=== PATIENT | male | born 1970 | race Caucasian/White ===

== ENCOUNTER → 2020-08-03 12:07 | Outpatient (CLI) | payer OTHER, SELFPAY ==
[2020-08-03] MEDS: COVID-19 VACC #1, MRNA(MOD) 100 MCG/0.5 ML VIAL IM (12:16)
== END ==
PROVIDERS: Visit Provider Internal Medicine
DX: Z23 Encounter for immunization (principal)
CPT/HCPCS: 0011A; 91301

== ENCOUNTER → 2020-08-31 10:23 | Outpatient (CLI) | payer OTHER, SELFPAY ==
[2020-08-31] MEDS: COVID-19 VACC #2, MRNA(MOD) 100 MCG/0.5 ML VIAL IM (10:33)
== END ==
PROVIDERS: Visit Provider Internal Medicine
DX: Z23 Encounter for immunization (principal)
CPT/HCPCS: 0012A; 91301

== ENCOUNTER → 2023-06-24 15:51 | Outpatient (CLI) | payer BC, SELFPAY ==
--- NOTE | 2023-06-24 | DI.RAD.S_ITS ---
PROCEDURE: XR SHOULDER LT MIN 2V INDICATIONS: LEFT SHOULDER PAIN TECHNIQUE: 3 views of the shoulder were acquired. COMPARISON: None. FINDINGS: Bones: No fractures or dislocations. No suspicious bony lesions. Visualized ribs appear intact. Mild degenerative changes of the acromioclavicular joint. Soft tissues: No suspicious soft tissue calcifications. IMPRESSION: No acute bony abnormality. Dictated by: Merrill Burnett M.D. on 06/24/2023 at 16:55 Approved by: Merrill Burnett M.D. on 06/24/2023 at 16:56
== END ==
LOC: RAD 15:53
PROVIDERS: Referring Provider Physician Assistant; Visit Provider Physician Assistant
DX: M25.512 Pain in left shoulder (principal); G89.29 Other chronic pain
CPT/HCPCS: 73030

== ENCOUNTER → 2023-08-08 15:01 | Outpatient (CLI) | payer BC, SELFPAY ==
--- NOTE | 2023-08-08 | DI.MRI.S_ITS ---
PROCEDURE: MR SHOULDER LT WO CON INDICATIONS: Adhesive capsulitis of left shoulder TECHNIQUE: Noncontrast oblique coronal T2 fast spin echo with fat saturation, oblique sagittal T1 spin echo and T2 fast spin echo with fat saturation, axial T1 spin echo and T2 fast spin echo with fat saturation through the shoulder. COMPARISON: [facility], CR, XR SHOULDER LT MIN 2V, 06/24/2023, 16:16. FINDINGS: Image quality: Excellent. Rotator cuff: There is low-grade intrasubstance tearing of the anterior, and mid supraspinatus tendon at the humeral insertion site. There is low-grade articular surface tearing of the posterior supraspinatus, anterior and mid infraspinatus tendons at the humeral insertion sites extending the musculotendinous junctions. Subscapularis and teres minor tendons are intact. No rotator cuff atrophy. Bones and bursae: No bone marrow contusions or fractures. Mild glenohumeral and acromioclavicular joint degeneration. The acromion demonstrates conventional anatomy, without an os acromiale. No pathologic subacromial-subdeltoid or subcoracoid bursal fluid is present. Capsule and soft tissues: There is undercutting of the posteroinferior labrum. The long head of the biceps tendon demonstrates normal location and morphology. The rotator interval appears normal, without fibrosis. The coracohumeral ligament is normal in thickness. IMPRESSION: 1. Partial-thickness tearing of the supraspinatus and infraspinatus tendons. 2. Acromioclavicular and glenohumeral joint osteoarthritis. 3. Glenoid labral tearing. Dictated by: Cuong Baires M.D. on 08/08/2023 at 15:54 Approved by: Cuong Baires M.D. on 08/08/2023 at 16:16
== END ==
PROVIDERS: Referring Provider Orthopaedic Surgery; Visit Provider Orthopaedic Surgery
DX: M75.02 Adhesive capsulitis of left shoulder (principal); M75.112 Incomplete rotator cuff tear or rupture of left shoulder, not specified as traumatic; M19.012 Primary osteoarthritis, left shoulder; S43.492A Other sprain of left shoulder joint, initial encounter
CPT/HCPCS: 73221